=== PATIENT | male | born 1990 | race African-American/Black ===

== ENCOUNTER 2019-12-04 12:04 | Emergency (ER) | payer OTHER | END 2019-12-04 13:20 | disposition home or self-care (01) | LOC: ERS 12:04 | DX: B35.3 Tinea pedis (principal); F43.10 Post-traumatic stress disorder, unspecified; F17.210 Nicotine dependence, cigarettes, uncomplicated | CPT/HCPCS: 99283 ==

== ENCOUNTER 2019-12-10 19:51 | Emergency (ER) | payer OTHER | END 2019-12-10 20:16 | disposition home or self-care (01) | LOC: ERS 19:51 | DX: B35.3 Tinea pedis (principal); L03.031 Cellulitis of right toe; F43.10 Post-traumatic stress disorder, unspecified; F17.210 Nicotine dependence, cigarettes, uncomplicated | CPT/HCPCS: 36416; 99283 ==

== ENCOUNTER 2023-12-20 06:25 | Emergency (ER) | payer OTHER | END 2023-12-20 06:56 | disposition home or self-care (01) | LOC: ERS 06:25 | DX: A09 Infectious gastroenteritis and colitis, unspecified (principal); F17.290 Nicotine dependence, other tobacco product, uncomplicated | CPT/HCPCS: 99283 ==